=== PATIENT | male | born 1945 | race Caucasian/White ===

== ENCOUNTER → 2017-08-14 10:43 | Outpatient (CLI) | payer MEDICARE, SELFPAY ==
[2017-08-14 11:21] LABS: Cholesterol 126 mg/dL (140-199); HDL Cholesterol 44 mg/dL (40-60); LDL Cholesterol Calculated 73 mg/dL (<100); Triglycerides 44 mg/dL (35-150)
[2017-08-14 11:50] LABS: Prostate Specific Antigen < 0.064 ng/mL (0.10-4.00)
== END ==
PROVIDERS: Family Provider Family Medicine; PCP Family Medicine; Visit Provider Family Medicine
DX: Z85.46 Personal history of malignant neoplasm of prostate (principal)
CPT/HCPCS: 36415; 80061; 84153

== ENCOUNTER 2017-08-21 09:45 | Outpatient (RCR) | payer MEDICARE, SELFPAY ==
--- NOTE | 2017-08-14 15:10 | PT.OIE ---
Current Diagnoses Unilateral primary osteoarthritis, right knee (08/14/17) Unilateral primary osteoarthritis, left knee (08/14/17) Past Surgical History History of tonsillectomy Status post appendectomy Status post hernia repair Status post radical cystoprostatectomy Provider Visit Care Team Role Provider Type Edson Ely MD Family Provider Physician Primary Care Provider Specialty: Family Practice Address: [address] [place] [address], [id number] Email: [email or web address] Guillermo Cortes MD Attending Provider Physician Specialty: Orthopedics Address: [address] [place] [address], [id number] Email: [email or web address] Initial Evaluation PT-OP-A Visit Information Start: 08/14/17 10:54 Freq: Status: Active Protocol: Document 08/14/17 10:55 EA (Rec: 08/14/17 11:09 EA [id number]) Out-Patient Physical Therapy Visit Information Visit Information Visit Type Initial Evaluation Visit Start Time 09:45 Visit Stop Time 10:20 Total Visit Minutes 35 Visit Number 1 Number of COVER REMOVER Visits 0 Evaluation Information Evaluation Date 08/14/17 PT-OP-B Current Condition Start: 08/14/17 10:54 Freq: Status: Active Protocol: Document 08/14/17 10:55 EA (Rec: 08/14/17 11:09 EA [id number]) Current Condition History of Current Condition Onset Date Chronic gradual onset for 5 years Current Complaints bilateral knee pain History of Current Condition Present condition started to get 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 Patient reports seen his surgeon 2 weeks ago and discussed that knee PF joint OA is the result of MRI. Patient was then given cortisone shot to both knees and was recommended for skilled Pt due to weakness of both quads. Patient felt pain after the shot improved. Prior Treatments and Tests Bilatel knees cortisone shot two weeks ago from this date. 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 Prior Functional Status Baseline Function- ADL's Independent Baseline Function- Mobility Independent Current Functional Impairments (Reported) Functional Limitations- ADL's Limited with kneeling and getting up from low chair or deep squating. Functional Limitations- Mobility/Gait None PT-OP-C Subjective Start: 08/14/17 10:54 Freq: Status: Active Protocol: Document 08/14/17 10:55 EA (Rec: 08/14/17 11:09 EA [id number]) OP-PT Subjective Patient Comments Patient Comments Patient c/o of difficulty of getting up from a kneeling, deep chair position due to weakness on both thigh and minimal discomfort to both knees. Patient Reported Progress Improving Patient Questionnaires Oswestry Low Back Index Oswestry Impairment 20 to 39% Impaired (Score 20- 39) OP-PT Pain Assessment Pain Assessment Grid Paper Pain Assessment Grid Completed Yes Home Pain Medication Use Pain Medications Used No PT-OP-D Balance Start: 08/14/17 10:54 Freq: Status: Active Protocol: Document 08/14/17 11:09 EA (Rec: 08/14/17 11:12 EA [id number]) Balance Tests Single Limb Standing Single Limb- Right < 3 secs Single Limb- Left < 7 secs PT-OP-F Manual Assessment Start: 08/14/17 10:54 Freq: Status: Active Protocol: Document 08/14/17 11:09 EA (Rec: 08/14/17 11:12 EA [id number]) Manual Assessments Joint Mobility Assessment Joint Mobility Assessment decreased inferior and medial glide of PF joint on both knees PT-OP-G Mobility & Gait Start: 08/14/17 10:54 Freq: Status: Active Protocol: Document 08/14/17 10:54 EA (Rec: 08/14/17 15:04 EA [id number]) OP Mobility Evaluation Functional Movements Squats Moderate difficulty at half squat Other Functional Movements Sit <-> stand without hand support at 17 chair: unable due to pain and difficulty PT-OP-J Posture/Palpation/Skin Start: 08/14/17 10:54 Freq: Status: Active Protocol: Document 08/14/17 10:55 EA (Rec: 08/14/17 15:06 EA [id number]) Skin Assessment Circumference Measurement 1 Comments no obvious swelling noted Other Assessments Skin Assessment Comments Right patellar medial border cysts with no signs of active inflammation PT-OP-K Range of Motion Start: 08/14/17 10:54 Freq: Status: Active Protocol: Document 08/14/17 10:54 EA (Rec: 08/14/17 15:04 EA [id number]) Hip Goniometric Range of Motion Hip ROM Limitations Comments Both Hip IR limited by 10 degrees d/t muscular tightness Knee Goniometric Range of Motion Knee ROM Limitations Knee ROM Limitations Soft Tissue Tightness Comments both knee Flexion/ EXTAROM are WFL. Prone knee flexion exhibits tightness to rectus femoris L > R. Noted both Hamstrings are also tight PT-OP-L Special Tests Start: 08/14/17 10:54 Freq: Status: Active Protocol: Document 08/14/17 10:54 EA (Rec: 08/14/17 15:04 EA [id number]) Special Tests Hip Special Tests Ruperto Test Results Both hips are tight Kasey's Test Test Results left tight Knee Special Tests Dick's Sign Test Results Positive Benigno's Test Test Results Tight both IT band Kasey's Test Test Results tight both RF w/ L>R Apley's Compression Test Results negative PT-OP-M Strength Start: 08/14/17 10:54 Freq: Status: Active Protocol: Document 08/14/17 10:54 EA (Rec: 08/14/17 15:04 EA [id number]) Hip Strength Hip Manual Muscle Testing Left Flexion (L2) 5 Normal Extension (S1) 4 Good Abduction 5 Normal Adduction 5 Normal External Rotation 5 Normal Internal Rotation 3+ Fair+ Right Flexion (L2) 5 Normal Extension (S1) 5 Normal Abduction 5 Normal Adduction 5 Normal External Rotation 5 Normal Internal Rotation 3+ Fair+ Knee Strength Knee Manual Muscle Testing Right Flexion (S2) 5 Normal Extension (L3) 5 Normal Left Flexion (S2) 5 Normal Extension (L3) 5 Normal PT-OP-Q Treatments Start: 08/14/17 10:54 Freq: Status: Active Protocol: Document 08/14/17 10:54 EA (Rec: 08/14/17 15:04 EA [id number]) Self-Care/Home Management Treatment Education Patient Education Home Exercise Program Pain Management Safety PT-OP-T Assessment and Plan Start: 08/14/17 10:54 Freq: Status: Active Protocol: Document 08/14/17 10:54 JAYMIE (Rec: 08/14/17 15:04 JAYMIE [id number]) Physical Therapy Assessment Rehab Potential Rehabilitation Potential Good Evaluation Complexity Number of Personal Factors/Comorbidities 3 or More Number of Body Systems Impaired 1-2 Clinical Presentation at Evaluation Stable Impairments Impairments Functional Activities Pain Soft Tissue Mobility Strength Goals Four Impairment Tightness to both IT band, Hamstrings, and hip flexors. Residential Goal (LTG) Patient will exhibit full excursion to both ITB, HAMS, and Hip flexors. LTG Duration 4 Three Impairment Unable to stand up at 17 chair without hand support Residential Goal (LTG) Patient will perform sit to stand at 17 chair without hand support x 10 times LTG Duration 4 wks Two Impairment Functional half squat: unable Dispatcher Chief Oil Goal (LTG) Patient will exhibit half squay LTG Duration 4 wks One Impairment LEFS score of 70 Dispatcher Chief Oil Goal (LTG) LEFS score of 78 LTG Duration 4 wks Assessment Summary Assessment Pleasant 72 y/o male patient demonstrates bilat PFPS/OA with positive on Dick's sign test and tigthness to both ITB , hamstring and hip flexors, with depressed arch and patellar tracking issue. Due to above mentioned issue patient have difficulty with deep squatting and getting up from low chair without hands support. In my professional opinion patient will benefit with skilled to address the aforementioned issues to reach functional mobility without difficulty. Goals and treatment plan were discussed to patient and agreeable to it . Physical Therapy Plan Frequency and Duration Frequency of Treatment 2x/Week Plan of Care Start Date 08/14/17 Plan of Care End Date 10/09/17 Next Visit Focus/Plan Next Visit Plan Provide HEP of VMO strengthening. Quads, hip flexors, hamstrings, Hip ER and ITB flexibility. Provider Signature Date
--- NOTE | 2017-08-14 15:10 | PT.OPPOC ---
Current Diagnoses Unilateral primary osteoarthritis, right knee (08/14/17) Unilateral primary osteoarthritis, left knee (08/14/17) Provider Visit Care Team Role Provider Type Edson Ely MD Family Provider Physician Primary Care Provider Specialty: Family Practice Address: [address] [place] [address], [address] Email: [email or web address] Guillermo Crotes MD Attending Provider Physician Specialty: Orthopedics Address: [address] [place] [address], [address] Email: [email or web address] Plan Of Care PT-OP-T Assessment and Plan Start: 08/14/17 10:54 Freq: Status: Active Protocol: Document 08/14/17 10:54 EA (Rec: 08/14/17 15:04 EA [id number]) Physical Therapy Assessment Rehab Potential Rehabilitation Potential Good Evaluation Complexity Number of Personal Factors/Comorbidities 3 or More Number of Body Systems Impaired 1-2 Clinical Presentation at Evaluation Stable Impairments Impairments Functional Activities Pain Soft Tissue Mobility Strength Goals Four Impairment Tightness to both IT band, Hamstrings, and hip flexors. Long-Term Goal (LTG) Patient will exhibit full excursion to both ITB, HAMS, and Hip flexors. LTG Duration 4 Three Impairment Unable to stand up at 17 chair without hand support Cardio Tech Goal (LTG) Patient will perform sit to stand at 17 chair without hand support x 10 times LTG Duration 4 wks Two Impairment Functional half squat: unable Long-Term Goal (LTG) Patient will exhibit half squay LTG Duration 4 wks One Impairment LEFS score of 70 Cardio Tech Goal (LTG) LEFS score of 78 LTG Duration 4 wks Assessment Summary Assessment Pleasant 72 y/o male patient demonstrates bilat PFPS/OA with positive on Dick's sign test and tigthness to both ITB , hamstring and hip flexors, with depressed arch and patellar tracking issue. Due to above mentioned issue patient have difficulty with deep squatting and getting up from low chair without hands support. In my professional opinion patient will benefit with skilled to address the aforementioned issues to reach functional mobility without difficulty. Goals and treatment plan were discussed to patient and agreeable to it . Physical Therapy Plan Frequency and Duration Frequency of Treatment 2x/Week Plan of Care Start Date 08/14/17 Plan of Care End Date 10/09/17 Next Visit Focus/Plan Next Visit Plan Provide HEP of VMO strengthening. Quads, hip flexors, hamstrings, Hip ER and ITB flexibility. Plan of Care Dates Plan of Care Start Date 08/14/17 Plan of Care End Date 10/09/17 Please Sign and Return: I have reviewed this Plan of Care and certify that the skilled therapy services above are required to meet the patient???s needs. Physician Signature Date Printed Name and Credentials
--- NOTE | 2017-08-16 12:00 | PT.OTN ---
Current Diagnoses Unilateral primary osteoarthritis, right knee (08/16/17) Unilateral primary osteoarthritis, left knee (08/16/17) Physical Therapy Treatment Note PT-OP-A Visit Information Start: 08/14/17 10:54 Freq: Status: Active Protocol: Document 08/16/17 10:02 LRN (Rec: 08/16/17 10:39 LRN [id number]) Out-Patient Physical Therapy Visit Information Visit Information Visit Type Treatment Note Visit Note 05/11 Visit Start Time 10:02 Visit Stop Time 10:45 Total Visit Minutes 43 Visit Number 2 Number of YOLK SPRAY DRIER Visits 0 PT-OP-B Current Condition Start: 08/14/17 10:54 Freq: Status: Active Protocol: Document 08/14/17 10:55 EA (Rec: 08/14/17 11:09 EA [id number]) Current Condition History of Current Condition Onset Date Chronic gradual onset for 5 years Current Complaints bilateral knee pain History of Current Condition Present condition started to get 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 Patient reports seen his surgeon 2 weeks ago and discussed that knee PF joint OA is the result of MRI. Patient was then given cortisone shot to both knees and was recommended for skilled Pt due to weakness of both quads. Patient felt pain after the shot improved. Prior Treatments and Tests Bilatel knees cortisone shot two weeks ago from this date. 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 Prior Functional Status Baseline Function- ADL's Independent Baseline Function- Mobility Independent Current Functional Impairments (Reported) Functional Limitations- ADL's Limited with kneeling and getting up from low chair or deep squatting. Functional Limitations- Mobility/Gait None PT-OP-C Subjective Start: 08/14/17 10:54 Freq: Status: Active Protocol: Document 08/16/17 10:02 LRN (Rec: 08/16/17 10:39 LRN [id number]) OP-PT Subjective Patient Comments Patient Comments States knee has felt good since the cortisone injection. wants him to strengthen. PT-OP-D Balance Start: 08/14/17 10:54 Freq: Status: Active Protocol: Document 08/14/17 11:09 EA (Rec: 08/14/17 11:12 EA [id number]) Balance Tests Single Limb Standing Single Limb- Right < 3 secs Single Limb- Left < 7 secs PT-OP-F Manual Assessment Start: 08/14/17 10:54 Freq: Status: Active Protocol: Document 08/14/17 11:09 EA (Rec: 08/14/17 11:12 EA [id number]) Manual Assessments Joint Mobility Assessment Joint Mobility Assessment decreased inferior and medial glide of PF joint on both knees PT-OP-G Mobility & Gait Start: 08/14/17 10:54 Freq: Status: Active Protocol: Document 08/14/17 10:54 EA (Rec: 08/14/17 15:04 EA [id number]) OP Mobility Evaluation Functional Movements Squats Moderate difficulty at half squat Other Functional Movements Sit <-> stand without hand support at 17 chair: unable due to pain and difficulty PT-OP-J Posture/Palpation/Skin Start: 08/14/17 10:54 Freq: Status: Active Protocol: Document 08/14/17 10:55 EA (Rec: 08/14/17 15:06 EA [id number]) Skin Assessment Circumference Measurement 1 Comments no obvious swelling noted Other Assessments Skin Assessment Comments Right patellar medial border cysts with no signs of active inflammation PT-OP-K Range of Motion Start: 08/14/17 10:54 Freq: Status: Active Protocol: Document 08/14/17 10:54 EA (Rec: 08/14/17 15:04 EA [id number]) Hip Goniometric Range of Motion Hip ROM Limitations Comments Both Hip IR limited by 10 degrees d/t muscular tightness Knee Goniometric Range of Motion Knee ROM Limitations Knee ROM Limitations Soft Tissue Tightness Comments both knee Flexion/ EXTAROM are WFL. Prone knee flexion exhibits tightness to rectus femoris L > R. Noted both Hamstrings are also tight PT-OP-L Special Tests Start: 08/14/17 10:54 Freq: Status: Active Protocol: Document 08/14/17 10:54 EA (Rec: 05/16/18 15:04 EA [id number]) Special Tests Hip Special Tests Ruperto Test Results Both hips are tight Kasey's Test Test Results left tight Knee Special Tests Dick's Sign Test Results Positive Benigno's Test Test Results Tight both IT band Kasey's Test Test Results tight both RF w/ L>R Apley's Compression Test Results negative PT-OP-M Strength Start: 08/14/17 10:54 Freq: Status: Active Protocol: Document 08/14/17 10:54 EA (Rec: 08/14/17 15:04 EA [id number]) Hip Strength Hip Manual Muscle Testing Left Flexion (L2) 5 Normal Extension (S1) 4 Good Abduction 5 Normal Adduction 5 Normal External Rotation 5 Normal Internal Rotation 3+ Fair+ Right Flexion (L2) 5 Normal Extension (S1) 5 Normal Abduction 5 Normal Adduction 5 Normal External Rotation 5 Normal Internal Rotation 3+ Fair+ Knee Strength Knee Manual Muscle Testing Right Flexion (S2) 5 Normal Extension (L3) 5 Normal Left Flexion (S2) 5 Normal Extension (L3) 5 Normal PT-OP-Q Treatments Start: 08/14/17 10:54 Freq: Status: Active Protocol: Document 08/16/17 10:02 LRN (Rec: 08/16/17 10:39 LRN [id number]) Cardio Equipment Bicycle (Upright) Duration (Minutes) 8 Resistance lev 2 Seat Position 3 Therapeutic Exercises Supine Exercises 5 Supine Exercise Name Quad stretch Side right Reps/Minutes 1 rep Comments Minimal tightness noted 3 Supine Exercise Name Hamstring/Neural stretch Side right Reps/Minutes 4 reps Comments Extra time due to training 2 Supine Exercise Name Lateral hip stretch Reps/Minutes 60+ 1 Supine Exercise Name Fig 4 Stretch followed by active stretch x 10 Reps/Minutes 60+ sec's Comments Extra time duie to training Prone Exercises 1 Prone Exercise Name Quad stretch followed by active stretch Side right Reps/Minutes 2 reps, 60+ sec's Sidelying Exercises 1 Sidelying Exercise Name TFL Stretch Side right Reps/Minutes 1 rep Comments Pt reports no tightness Sitting Exercises 1 Sitting Exercise Name Brief positioning for stretch Side right Reps/Minutes 1 rep Other Exercises 1 Other Exercise Name Squats for sitting with use of railing Reps/Minutes 15 Self-Care/Home Management Treatment Activities Self-Care/Home Management Activities HEP reviewed and issued for TFL (3 positions), Lateral hip , Hamstring, Hip ER stretches. PT-OP-R Modalities Start: 08/14/17 10:54 Freq: Status: Active Protocol: Document 08/16/17 10:02 LRN (Rec: 08/16/17 11:56 LRN [id number]) Hot Pack/Cold Pack Treatment Cold Pack Location R Knee Patient Position Hooklying Treatment Duration (minutes) 10 PT-OP-T Assessment and Plan Start: 08/14/17 10:54 Freq: Status: Active Protocol: Document 08/16/17 10:02 LRN (Rec: 08/16/17 12:00 LRN [id number]) Physical Therapy Assessment Goals Four Impairment Tightness to both IT band, Hamstrings, and hip flexors. Correction Goal (LTG) Patient will exhibit full excursion to both ITB, HAMS, and Hip flexors. LTG Duration 4 Three Impairment Unable to stand up at 17 chair without hand support Correction Goal (LTG) Patient will perform sit to stand at 17 chair without hand support x 10 times LTG Duration 4 wks Two Impairment Functional half squat: unable Correction Goal (LTG) Patient will exhibit half squat LTG Duration 4 wks One Impairment LEFS score of 70 Change Control Analyst Goal (LTG) LEFS score of 78 LTG Duration 4 wks Assessment Summary Assessment Pt did not note TFL/ITB tightness and would not perform standing stretches. Tightness is evident with hip ER's and hamstrings. Quadriceps do not appear to be restricted in mobility. Pt might benefit from use of K- tape for stability or edema control. Physical Therapy Plan Frequency and Duration Frequency of Treatment 2x/Week Plan of Care Start Date 08/14/17 Plan of Care End Date 10/09/17 Next Visit Focus/Plan Next Visit Plan Review HEP issued. Progress R knee strengthening as tolerated. Might try K-tape for stability or edema control .
--- NOTE | 2017-08-19 10:30 | PT.OTN ---
Current Diagnoses Unilateral primary osteoarthritis, right knee (08/19/17) Unilateral primary osteoarthritis, left knee (08/19/17) Physical Therapy Treatment Note PT-OP-A Visit Information Start: 08/14/17 10:54 Freq: Status: Active Protocol: Document 08/19/17 09:50 EA (Rec: 08/19/17 10:28 EA [id number]) Out-Patient Physical Therapy Visit Information Visit Information Visit Type Treatment Note Visit Start Time 09:00 Visit Stop Time 09:45 Total Visit Minutes 48 Visit Number 3 Number of ELECTRONIC ENGINEERING DRAFTSPERSON Visits 0 PT-OP-B Current Condition Start: 08/14/17 10:54 Freq: Status: Active Protocol: Document 08/14/17 10:55 EA (Rec: 08/14/17 11:09 EA [id number]) Current Condition History of Current Condition Onset Date Chronic gradual onset for 5 years Current Complaints bilateral knee pain History of Current Condition Present condition started to get 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 Patient reports seen his surgeon 2 weeks ago and discussed that knee PF joint OA is the result of MRI. Patient was then given cortisone shot to both knees and was recommended for skilled Pt due to weakness of both quads. Patient felt pain after the shot improved. Prior Treatments and Tests Bilatel knees cortisone shot two weeks ago from this date. 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 Prior Functional Status Baseline Function- ADL's Independent Baseline Function- Mobility Independent Current Functional Impairments (Reported) Functional Limitations- ADL's Limited with kneeling and getting up from low chair or deep squating. Functional Limitations- Mobility/Gait None PT-OP-C Subjective Start: 08/14/17 10:54 Freq: Status: Active Protocol: Document 08/19/17 09:50 EA (Rec: 08/19/17 10:28 EA [id number]) OP-PT Subjective Patient Comments Patient Comments Patient states knee is much feeling better; states has been compliant with HEP PT-OP-D Balance Start: 08/14/17 10:54 Freq: Status: Active Protocol: Document 08/14/17 11:09 EA (Rec: 08/14/17 11:12 EA [id number]) Balance Tests Single Limb Standing Single Limb- Right < 3 secs Single Limb- Left < 7 secs PT-OP-F Manual Assessment Start: 08/14/17 10:54 Freq: Status: Active Protocol: Document 08/14/17 11:09 EA (Rec: 08/14/17 11:12 EA [id number]) Manual Assessments Joint Mobility Assessment Joint Mobility Assessment decreased inferior and medial glide of PF joint on both knees PT-OP-G Mobility & Gait Start: 08/14/17 10:54 Freq: Status: Active Protocol: Document 08/14/17 10:54 EA (Rec: 08/14/17 15:04 EA [id number]) OP Mobility Evaluation Functional Movements Squats Moderate difficulty at half squat Other Functional Movements Sit <-> stand without hand support at 17 chair: unable due to pain and difficulty PT-OP-J Posture/Palpation/Skin Start: 08/14/17 10:54 Freq: Status: Active Protocol: Document 08/14/17 10:55 EA (Rec: 08/14/17 15:06 EA [id number]) Skin Assessment Circumference Measurement 1 Comments no obvious swelling noted Other Assessments Skin Assessment Comments Right patellar medial border cysts with no signs of active inflammation PT-OP-K Range of Motion Start: 08/14/17 10:54 Freq: Status: Active Protocol: Document 08/14/17 10:54 EA (Rec: 08/14/17 15:04 EA [id number]) Hip Goniometric Range of Motion Hip ROM Limitations Comments Both Hip IR limited by 10 degrees d/t muscular tightness Knee Goniometric Range of Motion Knee ROM Limitations Knee ROM Limitations Soft Tissue Tightness Comments both knee Flexion/ EXTAROM are WFL. Prone knee flexion exhibits tightness to rectus femoris L > R. Noted both Hamstrings are also tight PT-OP-L Special Tests Start: 08/14/17 10:54 Freq: Status: Active Protocol: Document 08/14/17 10:54 EA (Rec: 08/14/17 15:04 EA [id number]) Special Tests Hip Special Tests Ruperto Test Results Both hips are tight Kasey's Test Test Results left tight Knee Special Tests Dick's Sign Test Results Positive Benigno's Test Test Results Tight both IT band Kasey's Test Test Results tight both RF w/ L>R Apley's Compression Test Results negative PT-OP-M Strength Start: 08/14/17 10:54 Freq: Status: Active Protocol: Document 08/14/17 10:54 EA (Rec: 08/14/17 15:04 EA [id number]) Hip Strength Hip Manual Muscle Testing Left Flexion (L2) 5 Normal Extension (S1) 4 Good Abduction 5 Normal Adduction 5 Normal External Rotation 5 Normal Internal Rotation 3+ Fair+ Right Flexion (L2) 5 Normal Extension (S1) 5 Normal Abduction 5 Normal Adduction 5 Normal External Rotation 5 Normal Internal Rotation 3+ Fair+ Knee Strength Knee Manual Muscle Testing Right Flexion (S2) 5 Normal Extension (L3) 5 Normal Left Flexion (S2) 5 Normal Extension (L3) 5 Normal PT-OP-Q Treatments Start: 08/14/17 10:54 Freq: Status: Active Protocol: Document 08/19/17 09:50 EA (Rec: 08/19/17 10:28 EA [id number]) Gym Equipment Cable Column (Body Solid) Leg Extension Details VMO focus Resistance x 3 plates Reps/Time x 12 reps Shuttle Recovery Bilateral Squats Details VMO squats Resistance 75 # Reps/Time x 12 reps Therapeutic Exercises Supine Exercises 3 Supine Exercise Name Hamstring/Neural stretch Side right Reps/Minutes 4 reps Comments Extra time due to training 2 Supine Exercise Name Lateral hip stretch Reps/Minutes 60+ 1 Supine Exercise Name Fig 4 Stretch followed by active stretch x 10 Reps/Minutes 60+ sec's Comments Extra time duie to training Sidelying Exercises 1 Sidelying Exercise Name TFL Stretch Side right Reps/Minutes 1 rep Comments Pt reports no tightness Standing Exercises 1 Standing Exercise Name wall squat w/ VMO focus Reps/Minutes x 10 x 2sets PT-OP-R Modalities Start: 08/14/17 10:54 Freq: Status: Active Protocol: Document 08/19/17 09:50 EA (Rec: 08/19/17 10:28 EA [id number]) Hot Pack/Cold Pack Treatment Cold Pack Location R Knee Patient Position Hooklying Treatment Duration (minutes) 10 PT-OP-T Assessment and Plan Start: 08/14/17 10:54 Freq: Status: Active Protocol: Document 08/19/17 09:50 EA (Rec: 08/19/17 10:28 EA [id number]) Physical Therapy Assessment Assessment Summary Assessment Tolerated treatment well. IT band/TFL stretch perform in half kneeling provide better stretch. Physical Therapy Plan Next Visit Focus/Plan Next Visit Plan Cont. with current Please Sign and Return: I have reviewed this Plan of Care and certify that the skilled therapy services above are required to meet the patient???s needs. Physician Signature Date Printed Name and Credentials Clinical Instructor Signature Printed Name and Credentials
--- NOTE | 2017-08-21 10:33 | PT.OTN ---
Current Diagnoses Unilateral primary osteoarthritis, right knee (08/21/17) Unilateral primary osteoarthritis, left knee (08/21/17) Physical Therapy Treatment Note PT-OP-A Visit Information Start: 08/14/17 10:54 Freq: Status: Active Protocol: Document 08/21/17 10:28 EA (Rec: 08/21/17 10:33 EA [id number]) Out-Patient Physical Therapy Visit Information Visit Information Visit Type Treatment Note Total Visit Minutes 50 PT-OP-B Current Condition Start: 08/14/17 10:54 Freq: Status: Active Protocol: Document 08/14/17 10:55 EA (Rec: 08/14/17 11:09 EA [id number]) Current Condition History of Current Condition Onset Date Chronic gradual onset for 5 years Current Complaints bilateral knee pain History of Current Condition Present condition started to get 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 Patient reports seen his surgeon 2 weeks ago and discussed that knee PF joint OA is the result of MRI. Patient was then given cortisone shot to both knees and was recommended for skilled Pt due to weakness of both quads. Patient felt pain after the shot improved. Prior Treatments and Tests Bilatel knees cortisone shot two weeks ago from this date. 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 Prior Functional Status Baseline Function- ADL's Independent Baseline Function- Mobility Independent Current Functional Impairments (Reported) Functional Limitations- ADL's Limited with kneeling and getting up from low chair or deep squating. Functional Limitations- Mobility/Gait None PT-OP-C Subjective Start: 08/14/17 10:54 Freq: Status: Active Protocol: Document 08/21/17 10:28 EA (Rec: 08/21/17 10:33 EA [id number]) OP-PT Subjective Patient Comments Patient Comments Patient reports both jeramy is improving well; states difficult to identify if progress is due to the shot or exrecises PT-OP-D Balance Start: 08/14/17 10:54 Freq: Status: Active Protocol: Document 08/14/17 11:09 EA (Rec: 08/14/17 11:12 EA [id number]) Balance Tests Single Limb Standing Single Limb- Right < 3 secs Single Limb- Left < 7 secs PT-OP-F Manual Assessment Start: 08/14/17 10:54 Freq: Status: Active Protocol: Document 08/14/17 11:09 EA (Rec: 08/14/17 11:12 EA [id number]) Manual Assessments Joint Mobility Assessment Joint Mobility Assessment decreased inferior and medial glide of PF joint on both knees PT-OP-G Mobility & Gait Start: 08/14/17 10:54 Freq: Status: Active Protocol: Document 08/14/17 10:54 EA (Rec: 08/14/17 15:04 EA [id number]) OP Mobility Evaluation Functional Movements Squats Moderate difficulty at half squat Other Functional Movements Sit <-> stand without hand support at 17 chair: unable due to pain and difficulty PT-OP-J Posture/Palpation/Skin Start: 08/14/17 10:54 Freq: Status: Active Protocol: Document 08/14/17 10:55 EA (Rec: 08/14/17 15:06 EA [id number]) Skin Assessment Circumference Measurement 1 Comments no obvious swelling noted Other Assessments Skin Assessment Comments Right patellar medial border cysts with no signs of active inflammation PT-OP-K Range of Motion Start: 08/14/17 10:54 Freq: Status: Active Protocol: Document 08/14/17 10:54 EA (Rec: 08/14/17 15:04 EA [id number]) Hip Goniometric Range of Motion Hip ROM Limitations Comments Both Hip IR limited by 10 degrees d/t muscular tightness Knee Goniometric Range of Motion Knee ROM Limitations Knee ROM Limitations Soft Tissue Tightness Comments both knee Flexion/ EXTAROM are WFL. Prone knee flexion exhibits tightness to rectus femoris L > R. Noted both Hamstrings are also tight PT-OP-L Special Tests Start: 08/14/17 10:54 Freq: Status: Active Protocol: Document 08/14/17 10:54 EA (Rec: 08/14/17 15:04 EA [id number]) Special Tests Hip Special Tests Ruperto Test Results Both hips are tight Kasey's Test Test Results left tight Knee Special Tests Dick's Sign Test Results Positive Benigno's Test Test Results Tight both IT band Kasey's Test Test Results tight both RF w/ L>R Apley's Compression Test Results negative PT-OP-M Strength Start: 08/14/17 10:54 Freq: Status: Active Protocol: Document 08/14/17 10:54 EA (Rec: 08/14/17 15:04 EA [id number]) Hip Strength Hip Manual Muscle Testing Left Flexion (L2) 5 Normal Extension (S1) 4 Good Abduction 5 Normal Adduction 5 Normal External Rotation 5 Normal Internal Rotation 3+ Fair+ Right Flexion (L2) 5 Normal Extension (S1) 5 Normal Abduction 5 Normal Adduction 5 Normal External Rotation 5 Normal Internal Rotation 3+ Fair+ Knee Strength Knee Manual Muscle Testing Right Flexion (S2) 5 Normal Extension (L3) 5 Normal Left Flexion (S2) 5 Normal Extension (L3) 5 Normal PT-OP-Q Treatments Start: 08/14/17 10:54 Freq: Status: Active Protocol: Document 08/21/17 10:28 EA (Rec: 08/21/17 10:33 EA [id number]) Gym Equipment Cable Column (Body Solid) Leg Extension Details VMO focus Resistance x 3-4 plates Reps/Time x 12 reps Shuttle Recovery Bilateral Squats Details VMO squats Resistance 75 -100# Reps/Time x 12 reps Therapeutic Exercises Supine Exercises 2 Supine Exercise Name Lateral hip stretch Reps/Minutes 60+ 1 Supine Exercise Name Fig 4 Stretch followed by active stretch x 10 Reps/Minutes 60+ sec's Comments Extra time duie to training Prone Exercises 1 Prone Exercise Name Quad stretch followed by active stretch Side right Reps/Minutes 2 reps, 60+ sec's Sidelying Exercises 1 Sidelying Exercise Name TFL Stretch Side right Reps/Minutes 1 rep Comments Pt reports no tightness Standing Exercises 2 Standing Exercise Name Steady Lunges within the // bars Reps/Minutes x 8 reps x 1 each 1 Standing Exercise Name wall squat w/ VMO focus Reps/Minutes x 10 x 2sets Other Exercises 1 Other Exercise Name Squats for sitting with use of railing Reps/Minutes 15 PT-OP-R Modalities Start: 08/14/17 10:54 Freq: Status: Active Protocol: Document 08/21/17 10:28 EA (Rec: 08/21/17 10:33 JAYMIE [id number]) Hot Pack/Cold Pack Treatment Cold Pack Location both Knee Patient Position Hooklying Treatment Duration (minutes) 10 PT-OP-T Assessment and Plan Start: 08/14/17 10:54 Freq: Status: Active Protocol: Document 08/21/17 10:28 JAYMIE (Rec: 08/21/17 10:33 JAYMIE [id number]) Physical Therapy Assessment Assessment Summary Assessment Patient tolerated treatment well. Physical Therapy Plan Next Visit Focus/Plan Next Visit Plan Advance as tolerated Please Sign and Return: I have reviewed this Plan of Care and certify that the skilled therapy services above are required to meet the patient???s needs. Physician Signature Date Printed Name and Credentials Clinical Instructor Signature Printed Name and Credentials
--- NOTE | 2017-12-31 14:07 | PT.OPDS ---
Current Diagnoses Unilateral primary osteoarthritis, right knee (08/21/17) Unilateral primary osteoarthritis, left knee (08/21/17) Provider Visit Care Team Role Provider Type Edson Ely MD Family Provider Physician Primary Care Provider Specialty: Family Practice Address: [address] [place] [address], [id number] Email: [email or web address] Guillermo Cortes MD Attending Provider Physician Specialty: Orthopedics Address: [address] [place] [address], [id number] Email: [email or web address] Visit Number Visit Number 3 Discharge Summary PT-OP-B Current Condition Start: 08/14/17 10:54 Freq: Status: Active Protocol: Document 08/14/17 10:55 EA (Rec: 08/14/17 11:09 EA [id number]) Current Condition History of Current Condition Onset Date Chronic gradual onset for 5 years Current Complaints bilateral knee pain History of Current Condition Present condition started to get worsened few months 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 Patient reports seen his surgeon 2 weeks ago and discussed that knee PF joint OA is the result of MRI. Patient was then given cortisone shot to both knees and was recommended for skilled Pt due to weakness of both quads. Patient felt pain after the shot improved. Prior Treatments and Tests Bilateral knees cortisone shot two weeks ago from this date. 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 Prior Functional Status Baseline Function- ADL's Independent Baseline Function- Mobility Independent Current Functional Impairments (Reported) Functional Limitations- ADL's Limited with kneeling and getting up from low chair or deep squatting. Functional Limitations- Mobility/Gait None PT-OP-C Subjective Start: 08/14/17 10:54 Freq: Status: Active Protocol: Document 08/21/17 10:28 EA (Rec: 08/21/17 10:33 EA [id number]) OP-PT Subjective Patient Comments Patient Comments Patient reports both jeramy is improving well; states difficult to identify if progress is due to the shot or exrecises PT-OP-D Balance Start: 08/14/17 10:54 Freq: Status: Active Protocol: Document 08/14/17 11:09 EA (Rec: 08/14/17 11:12 EA [id number]) Balance Tests Single Limb Standing Single Limb- Right < 3 secs Single Limb- Left < 7 secs PT-OP-F Manual Assessment Start: 08/14/17 10:54 Freq: Status: Active Protocol: Document 08/14/17 11:09 EA (Rec: 08/14/17 11:12 EA [id number]) Manual Assessments Joint Mobility Assessment Joint Mobility Assessment decreased inferior and medial glide of PF joint on both knees PT-OP-G Mobility & Gait Start: 08/14/17 10:54 Freq: Status: Active Protocol: Document 08/14/17 10:54 EA (Rec: 08/14/17 15:04 EA [id number]) OP Mobility Evaluation Functional Movements Squats Moderate difficulty at half squat Other Functional Movements Sit <-> stand without hand support at 17 chair: unable due to pain and difficulty PT-OP-J Posture/Palpation/Skin Start: 08/14/17 10:54 Freq: Status: Active Protocol: Document 08/14/17 10:55 EA (Rec: 08/14/17 15:06 EA [id number]) Skin Assessment Circumference Measurement 1 Comments no obvious swelling noted Other Assessments Skin Assessment Comments Right patellar medial border cysts with no signs of active inflammation PT-OP-K Range of Motion Start: 08/14/17 10:54 Freq: Status: Active Protocol: Document 08/14/17 10:54 EA (Rec: 08/14/17 15:04 EA [id number]) Hip Goniometric Range of Motion Hip ROM Limitations Comments Both Hip IR limited by 10 degrees d/t muscular tightness Knee Goniometric Range of Motion Knee ROM Limitations Knee ROM Limitations Soft Tissue Tightness Comments both knee Flexion/ EXTAROM are WFL. Prone knee flexion exhibits tightness to rectus femoris L > R. Noted both Hamstrings are also tight PT-OP-L Special Tests Start: 08/14/17 10:54 Freq: Status: Active Protocol: Document 08/14/17 10:54 EA (Rec: 08/14/17 15:04 EA [id number]) Special Tests Hip Special Tests Ruperto Test Results Both hips are tight Kasey's Test Test Results left tight Knee Special Tests Dick's Sign Test Results Positive Benigno's Test Test Results Tight both IT band Kasey's Test Test Results tight both RF w/ L>R Apley's Compression Test Results negative PT-OP-M Strength Start: 08/14/17 10:54 Freq: Status: Active Protocol: Document 08/14/17 10:54 EA (Rec: 08/14/17 15:04 EA [id number]) Hip Strength Hip Manual Muscle Testing Left Flexion (L2) 5 Normal Extension (S1) 4 Good Abduction 5 Normal Adduction 5 Normal External Rotation 5 Normal Internal Rotation 3+ Fair+ Right Flexion (L2) 5 Normal Extension (S1) 5 Normal Abduction 5 Normal Adduction 5 Normal External Rotation 5 Normal Internal Rotation 3+ Fair+ Knee Strength Knee Manual Muscle Testing Right Flexion (S2) 5 Normal Extension (L3) 5 Normal Left Flexion (S2) 5 Normal Extension (L3) 5 Normal PT-OP-T Assessment and Plan Start: 08/14/17 10:54 Freq: Status: Active Protocol: Document 12/31/17 14:04 EA (Rec: 12/31/17 14:07 EA [id number]) Physical Therapy Assessment Assessment Summary Assessment Pt is discharge to skilled PT due to no longer attending PT session. Patient was informed to get another referral is he wish to come back. Physical Therapy Plan Discharge Physical Therapy Discharge Reasons No Longer Attending PT
== END 2018-03-03 12:29 ==
LOC: PHYS 09:45
PROVIDERS: Family Provider Family Medicine; PCP Family Medicine; Visit Provider Orthopaedic Surgery
DX: M17.11 Unilateral primary osteoarthritis, right knee (principal); M17.12 Unilateral primary osteoarthritis, left knee
CPT/HCPCS: 97010; 97110; 97161; 97535

== ENCOUNTER → 2017-12-16 14:51 | Outpatient (CLI) | payer MEDICARE, SELFPAY ==
[2017-12-16 15:34] LABS: Add Manual Diff / Slide Review NO; Basophils Percent Auto 0.7 % (0-2); Eosinophils Percent Auto 1.4 % (2-4); Hematocrit 47.4 % (41-53); Hemoglobin 16.2 g/dL (13.5-17.5); Lymphocytes Percent Auto 18.4 % (25-40); Mean Corpuscular HGB Conc 34.3 % (30-36); Mean Corpuscular Hemoglobin 32.4 PG (26-34); Mean Corpuscular Volume 94.5 fL (80-100); Monocytes Percent Auto 10.1 % (3-14); Neutrophils Absolute Auto 5300 /uL (3000-5900); Neutrophils Percent Auto 69.4 % (50-75); Platelet Count 354 X10^3/uL (150-400); Red Blood Cell Count 5.02 X10^6/uL (4.5-5.9); Red Cell Distribution Width 12.7 % (11.6-14.8); White Blood Cell Count 7.6 X10^3/uL (4.5-11.0)
[2017-12-16 16:09] LABS: BUN Creatinine Ratio 18.2 (6-22); Blood Urea Nitrogen 20 mg/dL (9-20); Calcium 9.9 mg/dL (8.4-10.2); Carbon Dioxide 32 mmol/L (22-32); Chloride 102 mmol/L (98-107); Estimated Glomerular Filt Rate > 60.0 mL/min (>60); Glucose 109 mg/dL (80-110); HEMOLYSIS < 15 (0-50); Potassium 3.8 mmol/L (3.4-5.1); Sodium 144 mmol/L (137-145)
== END ==
PROVIDERS: Visit Provider Orthopaedic Surgery Orthopaedic Surgery of the Spine
DX: M17.0 Bilateral primary osteoarthritis of knee (principal)
CPT/HCPCS: 36415; 80048; 85025

== ENCOUNTER 2018-01-16 08:32 | Inpatient (IN) | payer MEDICARE, SELFPAY ==
[2018-01-01 09:32] VITALS: BMI 28.6
[2018-01-16] VITALS (12 sets, daily range): BP systolic 99–151; BP diastolic 45–91; PULSE 79–102; RESP 10–20; TEMP 36.1–37.1; O2SAT 94–100; BMI 28.6; BMI 29.1
[2018-01-16] MEDS: LACTATED RINGERS 1,000 ML 42 ML IV ×2 (09:40→12:31)
[2018-01-16] MEDS: CEFAZOLIN 2 GM/100 ML FROZ.PIGGY IV ×2 (10:48→18:10)
--- NOTE | 2018-01-16 10:48 | PM.PREOP ---
Pre-operative Note Interval Note Pre-op Check: Yes History & Physical Reviewed by Physician, Yes Exam Performed and Yes History & Physical exam performed today by Physician Changes: No
--- NOTE | 2018-01-16 11:30 | SUR.OPER ---
Supine, head on gel donut. Arms padded with gel pads, tucked at sides, towel roll under shoulders. Safety belt at thigh. Legs uncrossed.
--- NOTE | 2018-01-16 13:27 | DI.RAD.S_ITS ---
PROCEDURE: XR CERVICAL SPINE 2V OR 3V INDICATIONS: ACDF 4-5-6-7 TECHNIQUE: 2 intraoperative fluoroscopic view(s) of the cervical spine were acquired. COMPARISON: None. FINDINGS: Bones: Intraoperative fluoroscopic images of cervical spine shows anterior fusion of C4-C7 vertebral bodies with intervertebral spacer placement at C4-5 through C6-7 levels. IMPRESSION: Fluoroscopy guidance was provided intraoperatively for anterior fusion at C4-C7 levels. Dictated by: Chilango Almonte M.D. on 01/16/2018 at 13:50 Approved by: Chilango Almonte M.D. on 01/16/2018 at 13:53
--- NOTE | 2018-01-16 13:41 | P.OP_ITS ---
Operative Date/Time/Diagnoses Date of procedure: 01/16/18 Time of procedure: 10:36 Pre-op diagnosis: 1. C4-5, C5-6, C6-7 spinal stenosis 2. C4-5, C5-6, C6-7 spondylosis with radiculopathy Post-op diagnosis: same Procedure & Clinicians Procedure: 1. C4-5 C5-6 C6-7 anterior cervical diskectomy and fusion 2. C4-5 C5-6 C6-7 anterior interbody cage placement 3. C4-5 C5-6 C6-7 anterior instrumentation with plate and screw placement in C4 -C5-C6 and C7 vertebrae 4. Utilization of microsurgical technique and operating microscope Same procedure as scheduled: Yes Indications: Patient has been having chronic neck pain and worsening cervical radiculopathy. Patient failed multiple conservative management with worsening pain weakness and numbness in her upper extremity. Patient has been having difficulty performing activity of daily living. After discussing risks benefits of treatment options, patient elected proceed with surgery. Surgeon: Gaurang Booker [employer] Attendant: Brooklyn Cortez Click Yes if Unassisted: No Anesthesia Type: General Operative Notes Closure Type: primary Implants & Drains: Globus Extend plate and Peek cages Applied: catheter Estimated Blood Loss (mL): 50 Blood products transfused: none Procedure in detail: Patient was seen in the preoperative area. Risks and benefits of the surgery was discussed with the patient. Operative consent was obtained and placed in the chart. Patient was then taken to the operative room. Prophylactic antibiotic was given less than 0.5 hr prior to skin incision. General anesthesia was administered. Patient was placed into a supine position on her radiolucent table. Bilateral shoulders were taped down to allow proper C-arm imaging. Anterior cervical area was prepped and draped in a sterile fashion. Time-out was performed at this time. Using lateral C-arm imaging, the level between C4 and C7 was identified and marked on patient's neck. A oblique incision from midline towards medial border of sternocleidomastoid muscle was made. The platysma muscle was incised in line with skin incision. Metzenbaum scissor was used to develop the plane between the medial border of sternocleidomastoid d and the strap muscles medially. The carotid sheath and its contents were identified and protected behind the hand- held retractor during the entire case. The plane between the carotid sheath and strap muscles was developed with Metzenbaum scissors. Dissection was made down to the level of the anterior cervical fascia. Longus colli muscle was incised on the anterior aspect of vertebral bodies bilaterally from C4-C7. Spinal needle was placed into the C4-5 disc space and confirmed with lateral C-arm imaging. Using microsurgical technique and operative microscope, anterior cervical diskectomy was performed at C4-5 C5-6 and C6-7 level. This was done by removing the disc material, removing the anterior and posterior osteophytes posterior longitudinal ligaments along with performing bilateral foraminotomies at all 3 levels. Patient was found to have severe central and foraminal stenosis at all 3 levels. Patient's stenosis was fully decompressed after decompression was completed. After the diskectomy was completed, 3 anterior interbody cages were obtained. The cages were packed with globus via cell bone grafting material. One cage each along with the bone grafting material was then packed into the interbody spaces from C4-C7 with one cage into each interbody level. After the cages were placed, the anterior cervical plate was stabilized to the C4-C7 vertebrae using 2 screws at each each level. Total 8 screws were placed. After confirming placement of the hardware with AP and lateral C-arm imaging, the screws were locked into the plate using the locking mechanism and torque limiting screwdriver. After the hardware was placed and confirmed with AP and lateral C-arm imaging, the wound was irrigated with sterile normal saline. The platysma muscle and the subcutaneous tissue was closed with 2-0 Vicryl. The skin was closed with 4- 0Monocryl and Steri-Strips. Patient tolerated the procedure well. Patient was transferred recovery room in stable condition. There were no complications. Complications: none Condition: stable Disposition: PACU Plan for aftercare: Admit to inpatient hospital
[2018-01-16] MEDS: SODIUM CHLORIDE 0.9% 1,000 ML 100 ML IV (16:02)
[2018-01-16] MEDS: hydrOXYzine pamoate 25 MG CAPSULE PO ×2 (16:47→21:25)
--- NOTE | 2018-01-16 16:51 | PC.NURSE ---
Pt admitted to acute care from pacu. Alert/oriented. Pain 07/09, medicated by shift RN. Soft collar in place, iv fluids infusing w/o complications. Spouse present for admission.
[2018-01-16] MEDS: DOCUSATE 100 MG CAPSULE PO (21:16)
[2018-01-16] MEDS: ATORVASTATIN 20 MG TABLET 40 MG PO (21:16)
[2018-01-16] MEDS: ACYCLOVIR 200 MG CAPSULE PO (21:16)
[2018-01-16] MEDS: SENNOSIDES 8.6 MG TABLET 17.2 MG PO (21:16)
[2018-01-16] MEDS: diphenhydrAMINE 25 MG TABLET 50 MG PO (21:36)
[2018-01-17 00:23] VITALS: BP 137/75; PULSE 96; RESP 16; TEMP 37.2; O2SAT 96
[2018-01-17] MEDS: CEFAZOLIN 2 GM/100 ML FROZ.PIGGY IV (01:53)
[2018-01-17] MEDS: hydrOXYzine pamoate 25 MG CAPSULE PO ×2 (01:53→06:43)
[2018-01-17 02:11] VITALS: O2SAT 96
--- NOTE | 2018-01-17 04:08 | PC.NURSE ---
A&Ox3. refused oxycodone, vistaril Ok. pain rate 4/10 and tolerable. refused ice packs. ambulated in hallways. dressing cdi, soft collar. call light in reach.
[2018-01-17 06:23] VITALS: BP 125/75; PULSE 72; RESP 16; TEMP 36.9; O2SAT 98
[2018-01-17 06:55] LABS: Hematocrit 43.7 % (41-53); Hemoglobin 14.9 g/dL (13.5-17.5)
[2018-01-17 08:45] VITALS: BP 152/84; PULSE 92; RESP 16; TEMP 36.9; O2SAT 97
[2018-01-17] MEDS: ACYCLOVIR 200 MG CAPSULE PO (08:47)
[2018-01-17] MEDS: LISINOPRIL 20 MG TABLET 40 MG PO (08:48)
[2018-01-17] MEDS: TRAMADOL 50 MG TABLET PO (08:48)
[2018-01-17] MEDS: INDAPAMIDE 2.5 MG TABLET 5 MG PO (08:49)
--- NOTE | 2018-01-17 08:55 | PT.IIE ---
Current Diagnoses Other spondylosis with radiculopathy, cervical region (01/16/18) Spinal stenosis, cervical region (01/16/18) Surgery Performed Operation Date: 01/16/18 10:45 Actual Procedures p C4-5, C5-6, C6-7 ACDF w/Anterior Instru. - Gaurang Booker MD Surgical History (Last Updated 01/01/18 @ 10:34 by Ana Silva, RN) History of colonoscopy (Acute) History of esophagogastroduodenoscopy (EGD) (Acute) History of spinal fusion (Acute) History of vasectomy (Acute) History of tonsillectomy Status post appendectomy Status post hernia repair Status post radical cystoprostatectomy (~03/2008) Medical History (Last Updated 01/01/18 @ 11:23 by Ana Silva, RN) ASHD (arteriosclerotic heart disease) (Acute) Atherosclerotic heart disease of [place] coronary artery without angina pectoris (Acute) Elevated coronary artery calcium score (Acute) Elevated platelet count (Acute) GERD (gastroesophageal reflux disease) (Acute) HTN (hypertension) (Acute) Herpes simplex (Acute) History of type B viral hepatitis (Acute) Hyperlipidemia (Acute) Impaired vision (Acute) Knee pain (Acute) Murmur (Acute) Osteoarthritis of spine with radiculopathy, cervical region (Acute) Osteopenia (Acute) PVC (premature ventricular contraction) (Acute) Spinal stenosis in cervical region (Acute) Physical Therapy Inpatient Evaluation/Re-Eval M1 PT/OT-IP Prior Functional Status Start: 01/17/18 12:53 Freq: NEEDED Status: Active Protocol: Document 01/17/18 08:55 AB (Rec: 01/17/18 13:01 AB [email or web address]) Medical Review Prior Functional Status Medical History Reviewed Yes Communication able to make needs known Mobility and Gait stated that he is independent with all mobilities and ambulation without AD Social History Household Members spouse Living Arrangements Apartment/Condo Number of Floors (Floors) One Floor Number of Stairs To Enter/Railing? has not steps to enter; has an elevator to get to other floors in the house ( has 21 steps to get to next floor is not using elevator with 1 rail ) Home Environment Standard Height Toilet Walk in Shower Home Equipment Hand Held Shower Employment Status Retired M2 PT-IP Current Condition Start: 01/17/18 12:53 Freq: NEEDED Status: Active Protocol: Document 01/17/18 08:55 AB (Rec: 01/17/18 13:01 AB [email or web address]) Physical Therapy Current Condition Current Condition Evaluation Date 01/17/18 Treatment Diagnosis s/p C4-5, C5-6, C6-7 anterior cervical discectomy and fusion Onset Date 01/16/18 Precautions Cervical Spine Precautions Soft Collar for Comfort Soft Collar at all Times Rigid Collar No Heavy Lifting Log Roll M3 PT-IP Subjective Start: 01/17/18 12:53 Freq: NEEDED Status: Active Protocol: Document 01/17/18 08:55 AB (Rec: 01/17/18 13:01 AB [email or web address]) Subjective Physical Therapy Visit Type Type Initial Evaluation Visit Start Time 08:55 Visit Stop Time 09:21 Total Visit Minutes 26 Physical Therapy Visit Comments Patient Comments pt agreeable to do PT Therapy Pain Assessment Pain When Pain Assessed At Rest Pain Present Pain Present Pain Reported Location Posterior Neck Intensity 5 Scale Used Numeric (1 - 10) Pain Management Techniques Timing of Activity with Medications M4 PT-IP Mobility and Gait Start: 01/17/18 12:53 Freq: NEEDED Status: Active Protocol: Document 01/17/18 08:55 AB (Rec: 01/17/18 13:01 AB [email or web address]) PT-Bed Mobility Assessment Rolling Type of Rolling Log Rolling Level of Assist Standby Assistance Supine to Sit Supine to Sit Standby Assistance Sit to Supine Sit to Supine Standby Assistance Scooting Scooting to Edge of Bed Standby Assistance PT-Transfer Assessment Sit to and From Stand Sit to and from Stand Standby Assistance Equipment Transfer Assistive Device None Gait Belt Orthotic/Prosthetic Devices or Brace: Yes Comments Mobility Comments pt has cervical soft collar on Gait Assessment Gait Gait Assistance Required: Standby Assistance Distance (Feet) 200 Able to Maintain Weight Bearing Status Yes During Gait Assistive Devices Assistive Device None Gait Belt Orthotic/Prosthetic Devices or Brace: Yes Gait Deviations General Gait Pattern Decreased Stride Length Factors Limiting Gait Function Factors Limiting Gait Function Decreased Activity Tolerance Decreased Strength Limited Range of Motion Pain Stair Climbing Assessment Evaluation Level of Assist On Stairs Standby Assistance Devices Stair Climbing Assistive Devices Left Railing Technique/Endurance Stair Climbing Direction Ascend and Descend Stair Climbing Technique Step Over Step Number of Steps Climbed 3 Query Text: Stair Climbing Set # Repetitions (reps) 2 PT-Balance Assessment Sitting Balance and Reactions Static Sitting Balance Ability Good Dynamic Sitting Balance Ability Good Standing Balance and Reactions Static Standing Balance Ability Good Dynamic Standing Balance Ability Good Device Used no AD M5 PT-IP Objective Assessments Start: 01/17/18 12:53 Freq: NEEDED Status: Active Protocol: Document 01/17/18 08:55 AB (Rec: 01/17/18 13:01 AB [email or web address]) Orientation Orientation/Cognition Level of Alertness Alert Orientation Name Age Birthday Month Date Year Day of Week Place Situation Safety Awareness Understands Safety Issues Memory Description No Deficits Noted Gross Range of Motion Lower Extremity ROM Assessment Within Functional Limits Strength Lower Extremity Strength Assessment Within Functional Limits M6 PT-IP Treatment Start: 01/17/18 12:53 Freq: NEEDED Status: Active Protocol: Document 01/17/18 08:55 AB (Rec: 01/17/18 13:01 AB [email or web address]) Physical Therapy Treatment Education Education Provided Precautions Weight Bearing Status Post-Op Packet Safety Brace Education [place] Patient Other Treatments Other Treatment Performed educated on donning/doffing of soft collar M7 PT-IP Assessment and Plan Start: 01/17/18 12:53 Freq: NEEDED Status: Active Protocol: Document 01/17/18 08:55 AB (Rec: 01/17/18 13:01 AB [email or web address]) PT Summary Assessment and Plan Potential Rehabilitation Potential Good Status of Condition at Evaluation Stable Summary Impairments Pain ROM Strength Balance Bed Mobility Transfers Gait Activity Tolerance Assessment Summary pt doing well with mobility and is cleared to be independent in room for mobility. pt plans to go home today with spouse to assist him. Goals Bed Mobility Goal Independent Transfer Goal Independent Gait Goal Independent Gait Distance 300 Days to Meet Goals 1 Frequency of Treatment Frequency Of Treatment Once a Day Treatment Plan Physical Therapy Treatment Plan Bed Mobility Training Transfer Training Gait Training Therapeutic Exercise Balance Retraining Post Op Education Discharge Planning Hot or Cold Pack Neuromuscular Re-ed Coordination Retraining Manual Therapy Recommendations To Nursing Amount of Assist Needed Independent Discharge Recommendations PT Discharge Recommendations Home with Assistance
--- NOTE | 2018-01-17 09:49 | PM.DS.1 ---
History of Present Illness Date Patient Seen: 01/17/18 Time Patient Seen: 09:50 Chief complaint: [id number] Narrative: Details of the patient's H&P can be found in the electronic chart. Discharge Providers Date of admission: 01/16/18 08:32 Consults: 01/16/18 14:38 Consult to Occupational Therapy Evaluate & Treat Comment: Physician Instructions: Evaluate and treat Consult to Physical Therapy Evaluate & Treat Comment: Physician Instructions: Evaluate and Treat Discharge provider: Callie Womack PA-C Discharge Date: 01/17/18 Summary Discharge Diagnosis: 1. C4-5, C5-6, C6-7 spinal stenosis 2. C4-5, C5-6, C6-7 spondylosis with radiculopathy Hospital Course: Patient was admitted taken operating room he had the ACDF by Dr. Booker. He recovered well as transfer the floor for further care. Postop day 1 patient was ambulating well. Pain under control. Eating and drinking well and able to urinate without difficulty. He was ready to be discharged home. He will be discharged home with a soft collar to wear for 2 weeks. Twisting bending of the neck restrictions. Follow up in the office in 10-14 days Status at Discharge Cognitive/behavioral status at discharge: Alert orient times Functional status at discharge: independent ambulation Overall status at discharge: patient is progressing back to baseline Time Spent with Patient Less than 30 minutes Exam Vital Signs (past 8 hours): - 01/17/18 02:11 01/17/18 06:23 Temperature 98.5 F Pulse Rate 72 Respiratory Rate 16 Blood Pressure 125/75 Pulse Oximetry 96 98 Oxygen Delivery Method Nasal Cannula Oxygen Flow Rate 0 Narrative Exam Narrative: Patient sitting in chair. Soft collar on. Alert and orient x3. Neck dressing clean dry and intact. 5/5 BUE strength. Tenderness bilateral scapula. Spasms left arm. Bilateral calves soft and nontender. Objective Labs Result Diagrams: 01/17/18 06:20 Labs: Laboratory Results - last 24 hr 01/17/18 06:20 Hgb 14.9 Hct 43.7 Discharge Plan Discharge Plan Patient Disposition: Home Discharge comment: Wear soft collar until f/u visit. Discharge Med Rec/Prescriptions Prescriptions: New tramadol 50 mg Tablet 50 mg PO Q4HR PRN (Reason: Moderate Pain) Qty: 60 RF: 0 hydroxyzine pamoate 25 mg Capsule 25 mg PO Q4HR PRN (Reason: muscle spasm) Qty: 60 RF: 1 Continue atorvastatin 40 MG tablet 1 tab PO HS Qty: 90 RF: 3 indapamide 2.5 MG tablet 5 mg PO QDAY Qty: 180 RF: 3 aspirin 81 MG tablet,delayed release (DR/EC) 81 mg PO QDAY Qty: 90 RF: 3 acyclovir [Zovirax] 200 MG capsule 200 mg PO BID Qty: 180 RF: 3 lisinopril 40 MG tablet 40 mg PO QDAY Qty: 90 RF: 3 multivitamin Tablet 1 tab PO DAILY RF: 0 sildenafil 100 mg Tablet 100 mg PO DAILY PRN (Reason: Erectile Dysfunction) RF: 0 garlic 1,000 mg Capsule 1,000 mg PO DAILY RF: 0 zinc gluconate 50 mg Tablet 50 mg PO DAILY RF: 0 lysine 500 mg Tablet 1,000 mg PO DAILY RF: 0 coenzyme Q10 [CoQ-10] 100 mg Capsule 600 mg PO DAILY RF: 0 ginkgo biloba 1 dose PO 4XW RF: 0 nnncxsal-yfixn-rwx6-C-abeba-bor 1 tab PO DAILY RF: 0 omeprazole 20 MG capsule,delayed release(DR/EC) 20 mg PO BID RF: 0 vardenafil [Levitra] 10 MG tablet 10 mg PO Q DAY PRN PRN (Reason: Erectile Dysfunction) RF: 0 cinnamon bark [Cinnamon] 500 mg Capsule 1 dose PO DIRECTED RF: 0 Follow up/Referrals: Gaurang Booker MD [Physician] - (Follow-up as scheduled time and date. Contact office with any questions or concerns.) Provider Discharge Instructions Diet: Diet as Tolerated Activity: Activity as tolerated. Twisting bending of the neck restriction Cold/Heat Therapy: Apply ice as needed for pain and inflammation. Skin/Wound/Dressing Care Report to your healthcare provider any signs of infection, such as:: chills, fever, increased pain and unusual drainage Discharge Data Attending Provider: Gaurang Booker Admit Date/Time: 01/16/18 08:32 Quality VTE Deep Vein Thrombosis/Pulmonary Embolism Present on Admission: No
--- NOTE | 2018-01-17 11:54 | OT.IP.TRT ---
Current Diagnoses Other spondylosis with radiculopathy, cervical region (01/16/18) Spinal stenosis, cervical region (01/16/18) Surgery Performed Operation Date: 01/16/18 10:45 Actual Procedures p C4-5, C5-6, C6-7 ACDF w/Anterior Instru. - Gaurang Booker MD Occupational Therapy Treatment Note M3 OT- IP Subjective and Pain Start: 01/17/18 10:54 Freq: Status: Active Protocol: Document 01/17/18 11:52 [facility] (Rec: 01/17/18 11:54 [facility] [id number]) OT- Subjective Occupational Therapy Visit Type Type Discharge Summary Notes Spoke to pt regarding OT eval, pt felt that PT had covered all needs and that is capable of assisting pt. Therefore, pt not wanting OT eval at this time and going home this PM. Discharge OT eval orders.
== END 2018-01-17 12:27 | disposition home or self-care (01) | DRG 473 ==
PROVIDERS: Admitting Provider Orthopaedic Surgery Orthopaedic Surgery of the Spine; Family Provider Family Medicine; Visit Provider Orthopaedic Surgery Orthopaedic Surgery of the Spine
PROC: 0RG20A0 Fusion of 2 or more Cervical Vertebral Joints with Interbody Fusion Device, Anterior Approach, Anterior Column, Open Approach (ICD-10-PCS; principal; 2018-01-16 10:45)
DX: M48.02 Spinal stenosis, cervical region (principal); M47.22 Other spondylosis with radiculopathy, cervical region; I10 Essential (primary) hypertension; Z87.891 Personal history of nicotine dependence; M25.78 Osteophyte, vertebrae
CPT/HCPCS: 36415; 72040; 76001; 85014; 85018; 97161; C1776; J0360; J0690; J1100; J2405; J2704; J3010

== ENCOUNTER 2018-01-18 10:17 | Emergency (ER) | payer MEDICARE, SELFPAY ==
[2018-01-16 16:40] VITALS: BMI 29.1
--- NOTE | 2018-01-18 11:02 | ED_ITS ---
HPI - SOB/Dyspnea General Chief Complaint: Shortness of Breath/Dyspnea Stated Complaint: SOB AFTER SURGERY Time Seen by Provider: 01/18/18 11:01 Source: patient Mode of arrival: ambulatory Limitations: no limitations History of Present Illness Patient is a 72-year-old male who 48 hr ago underwent a anterior cervical fusion performed by Dr. geovani ramirez at [facility]. He was discharged yesterday. He states that last evening when he got home he started to have shortness of breath and feeling like he could not catch his breath. No fevers. He states that he does have postnasal drip. Has been taking all of his postoperative medications. Does have a soft cervical collar in place. No chest pain. No nausea vomiting. He called the orthopedic provider security solutions architect who informed him to come to the emergency department. Related Data Home Medications Medication Instructions Recorded Confirmed cinnamon bark [Cinnamon] 1 dose PO DIRECTED 01/01/18 01/17/18 coenzyme Q10 [CoQ-10] 600 mg PO DAILY 01/01/18 01/01/18 garlic 1,000 mg PO DAILY 01/01/18 01/01/18 ginkgo biloba 1 dose PO 4XW 01/01/18 01/17/18 [id number]-[id number]-C-abeba-bor 1 tab PO DAILY 01/01/18 01/01/18 lysine 1,000 mg PO DAILY 01/01/18 01/01/18 multivitamin 1 tab PO DAILY 01/01/18 01/01/18 omeprazole 20 mg PO BID 01/01/18 01/16/18 sildenafil 100 mg PO DAILY PRN 01/01/18 01/16/18 vardenafil [Levitra] 10 mg PO Q DAY PRN PRN 01/01/18 01/16/18 zinc gluconate 50 mg PO DAILY 01/01/18 01/01/18 Previous Rx's Medication Instructions Recorded acyclovir [Zovirax] 200 mg PO BID #180 cap 03/20/17 aspirin 81 mg PO QDAY #90 tab 03/20/17 atorvastatin 1 tab PO HS #90 tab 03/20/17 indapamide 5 mg PO QDAY #180 tab 03/20/17 lisinopril 40 mg PO QDAY #90 tab 03/20/17 hydroxyzine pamoate 25 mg PO Q4HR PRN #60 cap 01/17/18 tramadol 50 mg PO Q4HR PRN #60 tab 01/17/18 Allergies Allergy/AdvReac Type Severity Reaction Status Date / Time diazepam [From VALIUM] Allergy Severe EXTREMELY Verified 01/16/18 09:24 VIOLENT BEHAVIOR acetaminophen [From Tylenol] AdvReac Intermediate Liver Verified 01/01/18 10:13 inflammation Review of Systems Constitutional Denies fever(s) Cardiovascular Denies chest pain, Denies irregular heart rhythm, Denies palpitations and Reports dyspnea Respiratory Reports cough, Denies pain on inspiration, Reports dyspnea and Denies wheezing Gastrointestinal Gastrointestinal: Denies nausea and Denies vomiting Musculoskeletal Denies tingling Comments: Some neck pain status post surgery No numbness or tingling and upper extremities Integumentary/Breasts Denies lesions and Denies rash Neurologic Denies tingling Endocrine Denies palpitations Allergic/Immunologic Denies wheezing [facility] Medical History ASHD (arteriosclerotic heart disease) (Acute) Atherosclerotic heart disease of [place] coronary artery without angina pectoris (Acute) Elevated coronary artery calcium score (Acute) Elevated platelet count (Acute) GERD (gastroesophageal reflux disease) (Acute) HTN (hypertension) (Acute) Herpes simplex (Acute) History of type B viral hepatitis (Acute) Hyperlipidemia (Acute) Impaired vision (Acute) Knee pain (Acute) Murmur (Acute) Osteoarthritis of spine with radiculopathy, cervical region (Acute) Osteopenia (Acute) PVC (premature ventricular contraction) (Acute) Spinal stenosis in cervical region (Acute) Surgical History History of colonoscopy (Acute) History of esophagogastroduodenoscopy (EGD) (Acute) History of spinal fusion (Acute) History of vasectomy (Acute) History of tonsillectomy Status post appendectomy Status post hernia repair Status post radical cystoprostatectomy (~03/2008) Family History Mother High cholesterol Exam Initial Vital Signs Initial Vital Signs: Vital Signs Temperature 97 F L 01/18/18 11:03 Pulse Rate 90 01/18/18 11:03 Respiratory Rate 14 01/18/18 11:03 Blood Pressure 154/90 H 01/18/18 11:03 Pulse Oximetry 99 01/18/18 11:03 Const General: cooperative, healthy appearing, comfortable, well developed, well groomed and No acute distress Orientation: alert, awake and oriented x3 HENMT Head: normal to inspection and normocephalic Neck Other: Soft cervical collar in place Surgical dressing with Tegaderm in place left anterior neck without surrounding erythema or drainage bandages clean and dry Resp Effort & Inspection: normal respiratory effort Auscultation: clear to auscultation bilaterally Cardio Rate: regular rate Rhythm: regular rhythm Pulses: radial pulses present GI Inspection: non-distended Palpation: soft, No firm and No tender Skin Other: No redness left anterior neck concerning for infection Neuro General: alert, awake and oriented x3 Psych Appearance: grossly normal and well kempt Course Orders Ordered: ED Orders 01/18/18 11:03 XR chest 1V Stat 01/18/18 11:09 EKG-12 Lead Stat 01/18/18 11:22 CT angio chest PE protocol Stat 01/18/18 11:45 B Type Natriuretic Peptide Stat Basic Metabolic Panel Stat Complete Blood Count AUTO DIFF Stat Partial Thromboplastin Time Stat Prothrombin Time INR Stat Troponin I Stat Discontinued Medications Sodium Chloride (Normal Saline 0.9%) 1,000 mls @ 1,000 mls/hr IV BOLUS ONE Stop: 01/18/18 12:20 Last Infusion: 01/18/18 13:18 Dose: 1,000 mls/hr Admin: 01/18/18 11:43 Dose: 1,000 mls/hr Vital Signs - 8 hr 01/18/18 11:03 01/18/18 12:00 01/18/18 13:00 Temperature 97 F L Pulse Rate 90 Respiratory Rate 14 Blood Pressure 154/90 H Blood Pressure [Left Arm] 155/89 H 155/89 H Pulse Oximetry 99 01/18/18 13:19 Temperature 97.6 F Pulse Rate 89 Respiratory Rate 17 Blood Pressure Blood Pressure [Left Arm] 161/91 H Pulse Oximetry 99 MDM - SOB/Dyspnea Lab Data Attestation: I reviewed the patient's lab results. Result diagrams: 01/18/18 11:45 01/18/18 11:45 Lab Results 01/18/18 01/18/18 01/18/18 Range/Units 11:45 11:45 11:45 WBC 14.0 H (4.5-11.0) X10^3/uL RBC 4.98 (4.5-5.9) X10^6/uL Hgb 16.2 (13.5-17.5) g/dL Hct 47.7 (41-53) % MCV 95.8 (80-100) fL MCH 32.6 (26-34) PG MCHC 34.1 (30-36) % RDW 13.6 (11.6-14.8) % Plt Count 358 (150-400) X10^3/uL Neut % (Auto) 68.4 (50-75) % Lymph % (Auto) 14.1 L (25-40) % [place] % (Auto) 16.6 H (3-14) % Eos % (Auto) 0.5 L (2-4) % Baso % (Auto) 0.4 (0-2) % Neut # (Auto) 9600 H (9006-6251) /uL PT 11.7 (10.1-12.7) SECONDS INR 1.1 (0.9-1.3) APTT 31 (26.4-36.2) SECONDS Sodium 144 (137-145) mmol/L Potassium 4.0 (3.4-5.1) mmol/L Chloride 97 L (98-107) mmol/L Carbon Dioxide 36 H (22-32) mmol/L BUN 14 (9-20) mg/dL Creatinine 0.80 (0.66-1.25) mg/dL Estimated GFR > 60.0 (>60) mL/min BUN/Creatinine Ratio 17.5 (6-22) Glucose 105 (80-110) mg/dL Calcium 9.8 (8.4-10.2) mg/dL Troponin I < 0.012 (0.01-0.034) ng/mL B-Natriuretic Peptide < 100.0 (<100) Imaging Data CT scan - chest: Radiologist's impression: PROCEDURE: CT ANGIO CHEST PE PROTOCOL INDICATIONS: surgery now with SOB TECHNIQUE: After the administration of intravenous contrast, 2 mm thick sections acquired from the pulmonary apices to the posterior costophrenic angles. 3-dimensional maximum intensity projection (MIP) coronal and sagittal reformats were then acquired through the thorax. For radiation dose reduction, the following was used: automated exposure control, adjustment of mA and/or kV according to patient size. COMPARISON: [facility], CR, XR CHEST 1V, 01/18/2018, 11:08. FINDINGS: Image quality: Excellent. Pulmonary arteries: Pulmonary arteries are normal in size, and demonstrate no intraluminal filling defects to suggest central pulmonary embolism. Lungs and pleura: Lungs are clear. No pleural effusions or pneumothorax. Central and peripheral airways are patent. Mediastinum: Heart size is normal, without pericardial effusion. No mediastinal or hilar adenopathy. Thoracic aorta is normal in caliber and enhancement. Esophagus is normal in caliber, without hiatal hernia. Bones and chest wall: No suspicious bony lesions. Ribs and thoracic spine appear intact throughout. Thyroid gland is unremarkable. No axillary or supraclavicular adenopathy. There are multiple foci of air are identified within the subcutaneous fat at the level of the sternum extending to the left of midline within the left lower neck. A there is mild appearance of fluid within this region without well-defined abscess. Abdomen: Visualized upper abdominal solid organs appear normal in the early arterial phase of enhancement. IMPRESSION: 1. No pulmonary embolism. 2. Multiple foci of air and minimal scattered fluid within the lower neck as described above. No discrete abscess is identified. Recommend correlation to region of recent surgery as per given history. Dictated by: Shaina Blair M.D. on 01/18/2018 at 12:40 Approved by: Shaina Blair M.D. on 01/18/2018 at 12:47 Chest x-ray: Radiologist's impression: [address] [id number] XRay Report Signed Patient: Tevin Rodriguez BMR#: [id number] : 1946Acct:[id number] Age/Sex: 72 / MDate of Service: 01/18/18 Loc: ED Accession Number: [id number] Procedure: XR chest 1V Ordering Provider: Shan Osorio D.O. PROCEDURE: XR CHEST 1V INDICATIONS: Shortness of breath after surgery TECHNIQUE: One view of the chest was acquired. COMPARISON: None. FINDINGS: Surgical changes and devices: Cervical fixation plates. Lungs and pleura: No pleural effusions or pneumothorax. Mild increased pulmonary vascularity. Mediastinum: Mediastinal contours appear normal. Heart size is normal. Bones and chest wall: No suspicious bony lesions. Overlying soft tissues appear unremarkable. IMPRESSION: Mild increased pulmonary vascularity suggestive of edema. Dictated by: Shaina Blair M.D. on 01/18/2018 at 11:59 Approved by: Shaina Blair M.D. on 01/18/2018 at 12:00 ECG Data Attestation: I personally reviewed and interpreted this ECG as follows: Prior ECG tracings: available for review Interpretation: Sinus rhythm Ventricular rate 86 Normal axis Normal QRS Normal QTC No ST T wave changes Comparison EKG dated 04/15/2015 Unchanged from today's MDM Narrative Medical decision making narrative: Chest x-ray does show some edema however CT scan does not support this. No PE on the CT scan. No signs of pneumonia. Does have an elevated white blood cell count however this could be secondary to his surgery a couple days ago. No fevers. EKG is unremarkable. Doubt ACS. Discussed all this with the patient and his . Will hold on further workup for now. He was instructed to keep all of his scheduled medical appointments. He was given return precautions. They both expressed understanding and agreement plan Discharge Plan Departure Patient Disposition: Home Clinical Impression: Shortness of breath Instructions: DI for Shortness of Breath Activity Restrictions/Additional Instructions: No blood clot was found in your lungs today on the CT scan. The CT scan also does not show any signs of pneumonia. I would continue all postoperative instructions given to you by your operative surgeon. Keep all scheduled medical appointments. Return to the emergency department for any new or worsening symptoms Prescriptions: No Action atorvastatin 40 MG tablet 1 tab PO HS Qty: 90 RF: 3 indapamide 2.5 MG tablet 5 mg PO QDAY Qty: 180 RF: 3 aspirin 81 MG tablet,delayed release (DR/EC) 81 mg PO QDAY Qty: 90 RF: 3 acyclovir [Zovirax] 200 MG capsule 200 mg PO BID Qty: 180 RF: 3 lisinopril 40 MG tablet 40 mg PO QDAY Qty: 90 RF: 3 multivitamin Tablet 1 tab PO DAILY RF: 0 sildenafil 100 mg Tablet 100 mg PO DAILY PRN (Reason: Erectile Dysfunction) RF: 0 garlic 1,000 mg Capsule 1,000 mg PO DAILY RF: 0 zinc gluconate 50 mg Tablet 50 mg PO DAILY RF: 0 lysine 500 mg Tablet 1,000 mg PO DAILY RF: 0 coenzyme Q10 [CoQ-10] 100 mg Capsule 600 mg PO DAILY RF: 0 ginkgo biloba 1 dose PO 4XW RF: 0 [id number]-dasqd-[id number]-C-abeba-bor 1 tab PO DAILY RF: 0 omeprazole 20 MG capsule,delayed release(DR/EC) 20 mg PO BID RF: 0 vardenafil [Levitra] 10 MG tablet 10 mg PO Q DAY PRN PRN (Reason: Erectile Dysfunction) RF: 0 cinnamon bark [Cinnamon] 500 mg Capsule 1 dose PO DIRECTED RF: 0 tramadol 50 mg Tablet 50 mg PO Q4HR PRN (Reason: Moderate Pain) Qty: 60 RF: 0 hydroxyzine pamoate 25 mg Capsule 25 mg PO Q4HR PRN (Reason: muscle spasm) Qty: 60 RF: 1
[2018-01-18 11:03] VITALS: BP 154/90; PULSE 90; RESP 14; TEMP 36.1; O2SAT 99
--- NOTE | 2018-01-18 11:22 | DI.CT.S_ITS ---
PROCEDURE: CT ANGIO CHEST PE PROTOCOL INDICATIONS: surgery now with SOB TECHNIQUE: After the administration of intravenous contrast, 2 mm thick sections acquired from the pulmonary apices to the posterior costophrenic angles. 3-dimensional maximum intensity projection (MIP) coronal and sagittal reformats were then acquired through the thorax. For radiation dose reduction, the following was used: automated exposure control, adjustment of mA and/or kV according to patient size. COMPARISON: [facility], CR, XR CHEST 1V, 01/18/2018, 11:08. FINDINGS: Image quality: Excellent. Pulmonary arteries: Pulmonary arteries are normal in size, and demonstrate no intraluminal filling defects to suggest central pulmonary embolism. Lungs and pleura: Lungs are clear. No pleural effusions or pneumothorax. Central and peripheral airways are patent. Mediastinum: Heart size is normal, without pericardial effusion. No mediastinal or hilar adenopathy. Thoracic aorta is normal in caliber and enhancement. Esophagus is normal in caliber, without hiatal hernia. Bones and chest wall: No suspicious bony lesions. Ribs and thoracic spine appear intact throughout. Thyroid gland is unremarkable. No axillary or supraclavicular adenopathy. There are multiple foci of air are identified within the subcutaneous fat at the level of the sternum extending to the left of midline within the left lower neck. A there is mild appearance of fluid within this region without well-defined abscess. Abdomen: Visualized upper abdominal solid organs appear normal in the early arterial phase of enhancement. IMPRESSION: 1. No pulmonary embolism. 2. Multiple foci of air and minimal scattered fluid within the lower neck as described above. No discrete abscess is identified. Recommend correlation to region of recent surgery as per given history. Dictated by: Shaina Blair M.D. on 01/18/2018 at 12:40 Approved by: Shaina Blair M.D. on 01/18/2018 at 12:47
[2018-01-18] MEDS: SODIUM CHLORIDE 0.9% 1,000 ML 1000 ML IV (11:43)
--- NOTE | 2018-01-18 11:54 | PC.NURSE ---
Discharged yesterday from cervical neck surgery. Pt C/O SOB worse with inspiration. Denies any new pain.
[2018-01-18 12:00] VITALS: BP 155/89
[2018-01-18 12:00] LABS: INR 1.1 (0.9-1.3); Prothrombin Time 11.7 SECONDS (10.1-12.7)
[2018-01-18 12:03] LABS: PTT Partial Thromboplastin Tim 31 SECONDS (26.4-36.2)
[2018-01-18 12:04] LABS: BUN Creatinine Ratio 17.5 (6-22); Blood Urea Nitrogen 14 mg/dL (9-20); Calcium 9.8 mg/dL (8.4-10.2); Carbon Dioxide 36 mmol/L (22-32); Chloride 97 mmol/L (98-107); Estimated Glomerular Filt Rate > 60.0 mL/min (>60); Glucose 105 mg/dL (80-110); HEMOLYSIS 19 (0-50); Sodium 144 mmol/L (137-145)
[2018-01-18 12:12] LABS: B Type Natriuretic Peptide < 100.0 (<100)
[2018-01-18 12:19] LABS: Add Manual Diff / Slide Review NO; Basophils Percent Auto 0.4 % (0-2); Eosinophils Percent Auto 0.5 % (2-4); Hematocrit 47.7 % (41-53); Hemoglobin 16.2 g/dL (13.5-17.5); Lymphocytes Percent Auto 14.1 % (25-40); Mean Corpuscular HGB Conc 34.1 % (30-36); Mean Corpuscular Hemoglobin 32.6 PG (26-34); Mean Corpuscular Volume 95.8 fL (80-100); Monocytes Percent Auto 16.6 % (3-14); Neutrophils Absolute Auto 9600 /uL (3000-5900); Neutrophils Percent Auto 68.4 % (50-75); Platelet Count 358 X10^3/uL (150-400); Red Blood Cell Count 4.98 X10^6/uL (4.5-5.9); Red Cell Distribution Width 13.6 % (11.6-14.8)
[2018-01-18 12:24] LABS: Troponin I < 0.012 ng/mL (0.01-0.034)
[2018-01-18 13:00] VITALS: BP 155/89
[2018-01-18 13:19] VITALS: BP 161/91; PULSE 89; RESP 17; TEMP 36.4; O2SAT 99
== END 2018-01-18 13:49 | disposition home or self-care (01) ==
PROVIDERS: Emergency Provider Emergency Medicine; Family Provider Family Medicine
DX: R06.02 Shortness of breath (principal); Z98.890 Other specified postprocedural states
CPT/HCPCS: 36591; 71045; 71275; 80048; 83880; 84484; 85025; 85610; 85730; 93005; 93010; 96360; 96361; 99283; 99285; Q9967

== ENCOUNTER → 2018-03-04 14:02 | Outpatient (CLI) | payer MEDICARE, SELFPAY ==
[2018-01-16 16:40] VITALS: BMI 29.1
--- NOTE | 2018-03-04 | DI.MRI.S_ITS ---
PROCEDURE: MR CERVICAL SPINE WO CON INDICATIONS: NECK PAIN TECHNIQUE: Noncontrast sagittal T1 spin echo and T2 fast spin echo, sagittal STIR, foraminal oblique sagittal T2 fast spin echo, and axial gradient echo or T2 fast spin echo through the cervical spine. COMPARISON: [facility], , C-SPINE WITHOUT CONTRAST, 07/16/2017, 10:14. FINDINGS: Image quality: Excellent. Alignment and Curvature: Patient is status post anterior fusion at C4-C7 levels with intervertebral spacers placement at C4-5 through C6-7 levels. Craft metallic artifacts are seen. There is straightening of normal cervical lordosis. Bone Marrow: There is no gross marrow edema. No acute compression fracture or traumatic spondylolisthesis. Spinal Cord: Visualized spinal cord has normal size and signal. No cerebellar tonsillar herniation. Paraspinous Soft Tissues: No paravertebral masses. Prevertebral soft tissues are normal in thickness. C2-C3: Normal appearance. C3-C4: Desiccation signal and decreased intervertebral disc space is seen. There is bilateral disc herniation superimposed on diffuse disc bulge causing mild central canal stenosis and right-sided neural foramina narrowing. Bulging disc likely contacting right C5 nerve root. C4-C5: Dorsal disc osteophyte complex formation at this level is seen with moderate central canal stenosis. Bilateral facet hypertrophic changes are seen with left worse than right bilateral neural foramina narrowing. There is likely compression of exiting left C5 nerve root. C5-C6: There is dorsal disc osteophyte complex formation and bilateral facet hypertrophic changes causing moderate central canal stenosis and left worse than right bilateral neuroforaminal narrowing, and likely contacting the left C6 and C7 nerve roots. C6-C7: Dorsal disc osteophyte complex formation and bilateral facet hypertrophic changes with mild central canal stenosis and left-sided neural foramina narrowing. C7-T1: Normal appearance. IMPRESSION: 1. Patient is status post interval anterior fusion of C4-C7 levels with mild straightening of normal cervical lordosis. No marrow edema. No acute compression fracture or traumatic spondylolisthesis. 2. No abnormal cervical spinal cord signal is seen. 3. Degenerative disc bulge and bilateral facet hypertrophic changes are noted at C3-4 level with mild central canal stenosis and right-sided neural foramina narrowing. 4. Dorsal disc osteophyte complex formation and bilateral uncinate hypertrophic changes are noted at C4-5 to C6-7 levels with a mild to moderate central canal stenosis and left worse than right bilateral neuroforamina narrowing as described above. Dictated by: Chilango Almonte M.D. on 03/04/2018 at 16:07 Approved by: Chilango Almonte M.D. on 03/04/2018 at 16:14
== END ==
PROVIDERS: Family Provider Family Medicine; Visit Provider Orthopaedic Surgery Orthopaedic Surgery of the Spine
DX: M50.11 Cervical disc disorder with radiculopathy, high cervical region (principal); M48.02 Spinal stenosis, cervical region; Z98.1 Arthrodesis status
CPT/HCPCS: 72141

== ENCOUNTER → 2018-03-07 14:29 | Outpatient (CLI) | payer MEDICARE, SELFPAY ==
[2018-01-16 16:40] VITALS: BMI 29.1
[2018-03-07 15:32] LABS: Alanine Aminotransferase 35 IU/L (21-72); Albumin Globulin Ratio 1.5 (1.0-2.8); Alkaline Phosphatase 65 U/L (38-126); Aspartate Aminotransferase 23 IU/L (17-59); BUN Creatinine Ratio 22.5 (6-22); Bilirubin Total 0.4 mg/dL (0.2-1.3); Blood Urea Nitrogen 18 mg/dL (9-20); Calcium 9.6 mg/dL (8.4-10.2); Carbon Dioxide 29 mmol/L (22-32); Chloride 100 mmol/L (98-107); Estimated Glomerular Filt Rate > 60.0 mL/min (>60); Globulin 2.6 g/dL (1.7-4.1); Glucose 132 mg/dL (80-110); HEMOLYSIS < 15 (0-50); Sodium 143 mmol/L (137-145); Total Protein 6.6 g/dL (6.3-8.2)
[2018-03-07 15:43] LABS: Bacteria Urine None Seen; WBC Urine None Seen (0-5/HPF)
[2018-03-07 15:48] LABS: Vitamin D 25 Hydroxy (D3) 67.4 ng/mL (30.0-100.0)
[2018-03-07 16:13] LABS: Appearance Urine UA CLEAR; Bilirubin Urine UA NEGATIVE (NEGATIVE); Color Urine UA YELLOW; Glucose Urine UA NEGATIVE (Normal); Ketones Urine UA NEGATIVE (NEGATIVE); Leukocyte Esterase Urine UA NEGATIVE (NEGATIVE); Nitrite Urine UA NEGATIVE (Negative); Occult Blood Urine UA TRACE-LYSED (Negative); Protein Urine UA NEGATIVE (Negative); Specific Gravity Urine UA 1.025 (1.000-1.035); Urobilinogen Urine UA 0.2 E.U./dL (0.2)
[2018-03-07 16:20] LABS: RBC Urine 1-5/HPF (0-5/HPF)
[2018-03-07 16:21] LABS: Culture Indicated Urine Cult Not Indicated
[2018-03-11 14:51] LABS: PSA, Total < 0.1 ng/mL (< 4.1)
== END ==
PROVIDERS: Family Provider Internal Medicine; PCP Student in an Organized Health Care Education/Training Program; Visit Provider Student in an Organized Health Care Education/Training Program
DX: I10 Essential (primary) hypertension (principal); I25.10 Atherosclerotic heart disease of native coronary artery without angina pectoris; Z79.899 Other long term (current) drug therapy; Z85.46 Personal history of malignant neoplasm of prostate; E55.9 Vitamin D deficiency, unspecified
CPT/HCPCS: 36415; 80053; 81001; 82306; 84153; 84154

== ENCOUNTER → 2018-09-09 12:13 | Outpatient (CLI) | payer MEDICARE, SELFPAY ==
[2018-06-10 08:30] VITALS: BMI 29.1
[2018-09-09 12:59] LABS: Alanine Aminotransferase 28 IU/L (21-72); Albumin 4.2 g/dL (3.5-5.0); Albumin Globulin Ratio 1.4 (1.0-2.8); Alkaline Phosphatase 57 U/L (38-126); Aspartate Aminotransferase 28 IU/L (17-59); Bilirubin Total 0.7 mg/dL (0.2-1.3); Bilirubin Unconjugated 0.7 mg/dL (0.0-1.1); Cholesterol 134 mg/dL (140-199); Globulin 2.9 g/dL (1.7-4.1); HDL Cholesterol 42 mg/dL (40-60); HEMOLYSIS < 15 (0-50); LDL Cholesterol Calculated 75 mg/dL (<100); Total Protein 7.1 g/dL (6.3-8.2); Triglycerides 83 mg/dL (35-150)
== END ==
PROVIDERS: Family Provider Internal Medicine; PCP Student in an Organized Health Care Education/Training Program; Visit Provider Student in an Organized Health Care Education/Training Program
DX: E78.00 Pure hypercholesterolemia, unspecified (principal); Z79.899 Other long term (current) drug therapy
CPT/HCPCS: 36415; 80061; 80076

== ENCOUNTER → 2018-09-11 15:35 | Outpatient (CLI) | payer MEDICARE, SELFPAY ==
[2018-06-10 08:30] VITALS: BMI 29.1
--- NOTE | 2018-09-11 | DI.MRI.S_ITS ---
PROCEDURE: MR KNEE RT WO CON INDICATIONS: Right knee pain TECHNIQUE: Noncontrast sagittal PD fast spin echo and T2 fast spin echo with fat saturation, sagittal 3-D FLASH with fat saturation; coronal T1 spin echo and PD fast spin echo with fat saturation, and axial PD fast spin echo with fat saturation through the knee. COMPARISON: [facility], MR, KNEE WITHOUT CONTRAST, 12/19/2015, 9:26. FINDINGS: Image quality: Excellent. Menisci: Linear horizontal T2 signal elevation traverses the medial meniscal body and posterior horn, demonstrating free edge and inferior articular surface extension, as before, indicating horizontal tearing. Lateral meniscus is intact. Cruciate ligaments: The anterior and posterior cruciate ligaments appear intact. Medial structures: The medial collateral ligament appears intact. Visualized portions of the pes anserinus tendons appear normal. No abnormal bursal fluid. Lateral structures: The lateral collateral ligament, long and short heads of the biceps femoris tendon appear intact. The popliteus tendon appears normal. Iliotibial band appears normal. Anterior structures: The quadriceps and patellar tendons appear intact. Patellar alignment is normal. No femoral trochlear dysplasia or ventral trochlear prominence. No edema in the infrapatellar fat pad. Moderate prepatellar subcutaneous edema. Bones and cartilage: No bone marrow contusions or fractures moderate subchondral cyst formation within the central and lateral femoral trochlea.. Mild tricompartmental periarticular osteophyte formation. Progressive articular cartilage loss overlies the patellar apex, with a now full thickness articular cartilage defect measuring 11 mm. This is superimposed on mild diffuse articular cartilage loss overlying the medial and lateral patellar facets. Mild diffuse articular cartilage loss overlies the medial and lateral femoral trochlea. Superimposed severe articular cartilage loss overlies the lateral femoral trochlea inferiorly. Mild diffuse articular cartilage loss overlies the weightbearing aspects of the medial femoral condyle and medial tibial plateau. Joint space: There is a small knee joint effusion and a small Rahman's cyst. Normal appearing synovial plicae are incidentally noted. IMPRESSION: 1. Tricompartmental osteoarthritis with associated articular cartilage loss, worst in the patellofemoral compartment. 2. No change in medial meniscal tear. 3. Knee joint effusion and Rahman's cyst. Dictated by: Hung Ramirez M.D. on 09/11/2018 at 16:31 Approved by: Hung Ramirez M.D. on 09/11/2018 at 16:34
--- NOTE | 2018-09-11 | DI.MRI.S_ITS ---
PROCEDURE: MR KNEE LT WO CON INDICATIONS: Left knee pain TECHNIQUE: Noncontrast sagittal PD fast spin echo and T2 fast spin echo with fat saturation, sagittal 3-D FLASH with fat saturation; coronal T1 spin echo and PD fast spin echo with fat saturation, and axial PD fast spin echo with fat saturation through the knee. COMPARISON: [facility], CR, BILATERAL KNEE 3VW, 11/17/2015, 13:06. FINDINGS: Image quality: Excellent. Menisci: Linear high signal intensity within the medial meniscal body and posterior horn is present, without definite articular surface extension. Cruciate ligaments: The anterior and posterior cruciate ligaments appear intact. Medial structures: The medial collateral ligament appears intact. Visualized portions of the pes anserinus tendons appear normal. No abnormal bursal fluid. Lateral structures: The lateral collateral ligament demonstrates mild T2 signal elevation within its femoral origin. The long and short heads of the biceps femoris tendon appear intact. The popliteus tendon appears normal. There is mild T2 signal elevation within the popliteus muscle. There is mild T2 signal elevation within the lateral head of the gastrocnemius. Iliotibial band appears normal. Anterior structures: The quadriceps and patellar tendons appear intact. Patellar alignment is normal. No femoral trochlear dysplasia or ventral trochlear prominence. No edema in the infrapatellar fat pad. Bones and cartilage: No bone marrow contusions or fractures. There is mild tricompartmental articular osteophyte formation. Moderate degenerative marrow edema within the medial and lateral patellar facets as well as the central and lateral femoral trochlea is present. Mild diffuse articular cartilage loss overlies the weightbearing aspects of the medial and lateral compartment. Severe articular cartilage loss overlies the lateral patellar facet and lateral femoral trochlea. Joint space: There is a moderate knee joint effusion and a trace Rahman's cyst. Normal appearing synovial plicae are incidentally noted. IMPRESSION: 1. Tricompartmental loss arthritis with associated articular cartilage loss. 2. Medial meniscal degeneration without evidence of tear. 3. Knee joint effusion and Rahman's cyst. 4. Strain of the popliteus and lateral head gastrocnemius muscles. 5. Partial-thickness lateral collateral ligament tear. Dictated by: Hung Ramirez M.D. on 09/11/2018 at 17:05 Approved by: Hung Ramirez M.D. on 09/11/2018 at 17:08
== END ==
PROVIDERS: Family Provider Internal Medicine; PCP Student in an Organized Health Care Education/Training Program; Visit Provider Orthopaedic Surgery
DX: M25.562 Pain in left knee (principal); M25.561 Pain in right knee; M17.0 Bilateral primary osteoarthritis of knee; S83.241A Other tear of medial meniscus, current injury, right knee, initial encounter; S83.422A Sprain of lateral collateral ligament of left knee, initial encounter; S86.812A Strain of other muscle(s) and tendon(s) at lower leg level, left leg, initial encounter; M25.462 Effusion, left knee; M25.461 Effusion, right knee; M71.22 Synovial cyst of popliteal space [Baker], left knee; M71.21 Synovial cyst of popliteal space [Baker], right knee
CPT/HCPCS: 73721

== ENCOUNTER → 2019-01-13 11:38 | Outpatient (CLI) | payer MEDICARE, SELFPAY ==
[2018-06-10 08:30] VITALS: BMI 29.1
[2019-01-13 12:26] LABS: Add Manual Diff / Slide Review NO; Basophils Absolute Auto 0 /uL (0-100); Basophils Percent Auto 0.6 % (0-2); Eosinophils Absolute Auto 100 /uL (0-450); Eosinophils Percent Auto 1.3 % (2-4); Hematocrit 49.2 % (41-53); Hemoglobin 16.5 g/dL (13.5-17.5); Lymphocytes Absolute Auto 1400 /uL (1100-4500); Lymphocytes Percent Auto 19.1 % (25-40); Mean Corpuscular HGB Conc 33.6 % (30-36); Mean Corpuscular Hemoglobin 32.4 PG (26-34); Mean Corpuscular Volume 96.4 fL (80-100); Monocytes Absolute Auto 800 /uL (0-900); Monocytes Percent Auto 11.4 % (3-14); Neutrophils Absolute Auto 4900 /uL (1500-7000); Neutrophils Percent Auto 67.6 % (50-75); Platelet Count 405 X10^3/uL (150-400); Red Cell Distribution Width 13.3 % (11.6-14.8); White Blood Cell Count 7.2 X10^3/uL (4.5-11.0)
[2019-01-13 13:23] LABS: Blood Urea Nitrogen 16 mg/dL (9-20); Carbon Dioxide 31 mmol/L (22-32); Chloride 97 mmol/L (98-107); Cholesterol 132 mg/dL (140-199); Estimated Glomerular Filt Rate > 60.0 mL/min (>60); Glucose 108 mg/dL (80-110); HDL Cholesterol 42 mg/dL (40-60); HEMOLYSIS < 15 (0-50); LDL Cholesterol Calculated 75 mg/dL (<100); Sodium 138 mmol/L (137-145); Triglycerides 76 mg/dL (35-150)
== END ==
PROVIDERS: Family Provider Internal Medicine; PCP Student in an Organized Health Care Education/Training Program; Visit Provider Internal Medicine Cardiovascular Disease
DX: E78.5 Hyperlipidemia, unspecified (principal); I10 Essential (primary) hypertension
CPT/HCPCS: 36415; 80048; 80061; 85025